=== PATIENT | male | born 1965 | race Caucasian/White ===

== ENCOUNTER 2023-05-22 15:05 | Emergency (ER) | payer SELFPAY ==
[2023-05-22 15:07] VITALS: BP 144/76; PULSE 67; RESP 16; TEMP 36.4; O2SAT 95
--- NOTE | 2023-05-22 15:11 | EKG12_ITS ---
Test Reason : CP Blood Pressure : / mmHG Vent. Rate : 063 BPM Atrial Rate : 063 BPM P-R Int : 158 ms QRS Dur : 096 ms QT Int : 400 ms P-R-T Axes : 057 -29 009 degrees QTc Int : 409 ms Normal sinus rhythm Normal ECG Confirmed by ROCAEL ROBERTS, ALEX ([id number]), purchasing expeditor VALENTE MOE ([id number]) on 05/24/2023 11:30:58 AM Referred By: ANTHONY Confirmed By:LANCE COTE MD
--- NOTE | 2023-05-22 15:13 | ED.VIS.CHEST ---
HPI History of Present Illness Chief Complaint: [facility] Medications atorvastatin 20 mg tablet mg 05/22/23 [History Last Taken Unknown] glipizide 10 mg tablet mg 05/22/23 [History Last Taken Unknown] lisinopril 20 mg-hydrochlorothiazide 12.5 mg tablet tab 05/22/23 [History Last Taken Unknown] metformin 1,000 mg tablet mg 05/22/23 [History Last Taken Unknown] prednisone 20 mg tablet 40 mg (2 x 20 mg) PO DAILY 5 days #10 tabs 05/22/23 [Rx Last Taken Unknown] sertraline 100 mg tablet mg 05/22/23 [History Last Taken Unknown] tamsulosin 0.4 mg capsule mg PO 05/22/23 [History Last Taken Unknown] valacyclovir 500 mg tablet mg 05/22/23 [History Last Taken Unknown] Allergy/AdvReac Type Severity Reaction Status Date / Time No Known Allergies Allergy Verified 05/22/23 15:08 Social History Smoking Status: Never smoker EXAM Physical Exam Const Vital Signs: 05/22/23 15:07 Temperature 97.5 F L Temperature Source Temporal Pulse Rate 67 Respiratory Rate 16 Blood Pressure 144/76 H Blood Pressure Mean 98 Pulse Ox 95 Oxygen Delivery Method Room Air MDM MDM MDM Narrative Medical decision making narrative: HISTORY OF PRESENT ILLNESS: 57-year-old male here with neck pain. The patient states he has been doing a new job work and ever since he has had neck pain that radiates to the occiput he describes as tension. He states he has a history of surgery to C1 vertebrae remotely approximate 7 years ago. Denies any fevers. Denies any focal numbness or tingling. He does also note he started a new workout program. He complains of right forearm pain as result. Patient denies any chest pain, shortness of breath, dyspnea on exertion. Denies recent falls or injury. REVIEW OF SYSTEMS: Pertinent positives: Neck pain Pertinent negatives: Focal numbness, weakness, chest pain, shortness of breath, exertional dyspnea, syncope PHYSICAL EXAM: Nursing triage notes reviewed, Vital signs reviewed Constitutional: please see mdm HENT: MMM Eyes: Pupils equal round and reactive to light, Extraocular muscles intact Neck: No stridor, no JVD, limited flexion extension of the neck, midline surgical scar clean dry intact, no purulence, no fluctuance no induration. Lungs: Clear to auscultation, No wheezing or rales. No increased work of breathing, no conversational dyspnea, no accessory muscle use, no nasal flaring. No respiratory distress noted Heart: Regular rate and rhythm, No murmurs, No rubs and No gallops, 2+ distal pulses (radial, femoral, posterior tibial) in all extremities Abdomen: Soft, there is no tenderness, rigidity, rebound or guarding, no obvious peritoneal signs, no palpable pulsatile abdominal masses, no auscultated abdominal bruit : No CVAT Extremities: No edema Neuro: No focal neurological deficits, cranial nerves II through XII intact, 5/5 strength in all extremities. Intact sensation to light touch in all extremities, 2+ reflexes bilateral patella tendons. Normal gait. No ataxia. Intact 5/5 strength with ok sign (median), intact finger abduction (ulnar) intact wrist extension (radial n). Intact sensation in the radial, ulnar, and median nerve distributions. Skin: No rash or lesions noted MEDICAL DECISION MAKING: Chief Complaint: Neck pain External records reviewed: No recent catheterizations of the heart, stress test or echocardiograms noted Factors affecting care: none Social determinants of health: none History obtained from others: none Consults: none ALL IMAGES (IF OBTAINED) HAVE BEEN PERSONALLY REVIEWED AND INTERPRETED BY MYSELF. EKG with normal sinus rhythm, left ax deviation, normal intervals, no STEMI no ARVD, no Brugada MDM Narrative: Patient was hemodynamically stable, afebrile, nontoxic-appearing. I considered the following differential diagnosis: Musculoskeletal inflammatory changes, cervical spine injury CT scan was obtained to rule out any bony abnormalities or any postsurgical changes. CT scan of the cervical spine showed no evidence of acute bony injury. Patient was treated with anti-inflammatories. I suspect the patient's condition is related to musculoskeletal irritation from recent change in activity including prolonged computer usage during his new job training. I will prescribe 5 days of prednisone for anti-inflammatory effect. He is given instructions to follow with his primary care physician and to return if symptoms change or worsen. The patient and/or family, caregivers express understanding. The patient and/or family, caregivers agrees with the plan. Total critical care time today provided was at least 0 minutes. This excludes separately billable procedures. Critical care time (if documented) is secondary to the patient having high probability of clinically significant/life threatening deterioration in the patient's condition which required my urgent intervention. Shared decision making: I will have a discussion with the patient and or visitors regarding risk/benefits of further testing or admission. They will be made aware of of the risk/benefits inherent in this decision they will be given the opportunity to voice understanding. Radiography Diagnostic Testing: Clinical Impression(s) from Imaging Studies Cervical Spine CT 05/22/23 15:23 IMPRESSION: Degenerative changes of the cervical spine. There are no acute findings. Electronically Signed: Faraz Valencia MD at 16:18 EDT Reading Location ID and State: [facility] / [place] , Service support , Discharge Plan Triage Chief Complaint: Chest Pain ED Provider: Zion Tristan Dx/Rx/DC Orders Clinical Impression: Cervical muscle strain Instructions: Treating?Strains and Sprains, Understanding Cervical Strain Prescriptions: New prednisone 20 mg tablet 40 mg PO DAILY 5 Days Qty: 10 0RF No Action atorvastatin 20 mg tablet Patient Comments: TAKE 1 TABLET BY MOUTH ONCE DAILY lisinopril-hydrochlorothiazide 20-12.5 mg tablet Patient Comments: TAKE 1 TABLET BY MOUTH ONCE DAILY glipizide 10 mg tablet Patient Comments: TAKE 1 TABLET BY MOUTH TWICE DAILY sertraline 100 mg tablet Patient Comments: TAKE 1/2 (ONE-HALF) TABLET BY MOUTH ONCE DAILY valacyclovir 500 mg tablet Patient Comments: TAKE 1 TABLET BY MOUTH ONCE DAILY tamsulosin 0.4 mg capsule PO Patient Comments: TAKE 1 CAPSULE BY MOUTH ONCE DAILY metformin 1,000 mg tablet Patient Comments: TAKE 1 TABLET BY MOUTH TWICE DAILY Primary Care Provider: Meenakshi Truong Referrals: NOT,DEFINED [Non-Staff] - Activity Restrictions/Additional Instructions: Thank you for trusting us with your care today! Please take Tylenol (2 pills, 650 mg), ibuprofen (2 pills, 400 mg) every 6 hours as needed for pain and fever control. Please take prednisone daily as prescribed. Please return to the emergency department if your symptoms change or worsen. Specifically if develop loss of sensation, loss of movement in your upper extremities if your pain changes or worsens. Please try to be mindful of your posture while training at work as this is likely the cause of your symptoms. You may consider changing your posterior to standing position (if possible) to relieve tension in your neck. Please follow with your primary care physician for further outpatient evaluation and management. Disposition Disposition: Home, Self Care Discharge Date/Time: 05/22/23 16:31
--- NOTE | 2023-05-22 15:23 | CT_ITS ---
EXAM: CT SPINE - CERVICAL WITHOUT IV REASON FOR EXAM: Male, 57 years old. NECK PAIN neck pain hx of neck surgery r/o bony abnormality HISTORY: NECK PAIN neck pain hx of neck surgery r/o bony abnormality Individualized dose optimization techniques were used for this CT. TECHNIQUE: Multiplanar images were obtained of the cervical spine. IV contrast was not utilized. COMPARISON: None. FINDINGS: The vertebral bodies do maintain their height. The odontoid process is intact. 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 There are calcifications posterior to the dens which appears chronic. No pre-vertebral soft tissue swelling is seen. The intravertebral disc height is lost. There are scattered lymph nodes in the neck. There are degenerative changes of the osseous structures. There is bilateral facet arthropathy. There are scattered levels of foraminal stenosis. There are vascular calcifications. CT/Spine Cervical without Contras IMPRESSION: Degenerative changes of the cervical spine. There are no acute findings. Electronically Signed: Faraz Valencia MD at 16:18 EDT ,
[2023-05-22] MEDS: predniSONE 20 MG Tablet 40 MG PO (15:32)
[2023-05-22] MEDS: Ibuprofen 200 MG Tablet 400 MG PO (15:32)
[2023-05-22 15:33] VITALS: BMI 27.8
== END 2023-05-22 16:31 | disposition home or self-care (01) ==
LOC: ED 16:11
PROVIDERS: Emergency Provider Emergency Medicine; Visit Provider Emergency Medicine
DX: S16.1XXA Strain of muscle, fascia and tendon at neck level, initial encounter (principal); X58.XXXA Exposure to other specified factors, initial encounter
CPT/HCPCS: 72125; 93005; 99283